=== PATIENT | female | born 1945 | race Caucasian/White ===

== ENCOUNTER → 2016-11-03 | Day surgery (SDC) | payer OTHER ==
[2016-10-24 14:37] VITALS: BMI 38.0
[~2016-11-03] VITALS: Ht 152.4 cm; Wt 88.2 kg
[~2016-11-03] MED LIST: ASPCH81X PO; CALC500C70 PO; CANA1TAB PO; COEN100C7 PO; DIPH25CA5 PO; LIDOCAINE HCL 2% 2 ML VIAL (20MG/ML) ONE; MAGN400T6 PO; METF-841 PO; MIDAZOLAM HCL 1 MG/ML 2ML VIAL ONE; OMEG10007 PO; OMEP40CA41 PO; ONDANSETRON INJ 2 MG/ML 2 ML VIAL ONE; PROPOFOL IV EMULSION 10 MG/ML 20 ML VIAL IV ONE; PRVC10 PO; SODIUM CHLORIDE 0.9% 500ML 500 ML IV ONE
[2016-11-03 10:41] VITALS: Ht 152.4 cm; Wt 88.2 kg
--- NOTE | 2016-11-03 11:15 | Endo History and Physical ---
History & Physical Date of Service: Nov 03, 2016. Chief Complaint: ATYPICAL CHEST PAIN, GERD WITHOUT ESOPHAGITIS Referring Physician: DR MARGO DANIEL History of Present Illness 71 yo CF who presents for EGD secondary to atypical chest pain and GERD. Past Surgical History Hx Cardiac Surgery: No Hx Internal Defibrillator: No Hx Pacemaker: No Hx Abdominal Surgery: Yes (TUBAL LIGATION) Hx of Implantable Prosthesis: No Hx Post-Op Nausea and Vomiting: No Hx Cancer Surgery: No Hx Thoracic Surgery: No Hx Orthopedic: No Hx Urinary Tract Surgery: No Family History IBD Social History Smoking Status: Never Smoker Hx Substance Use: No Hx Alcohol Use: No Allergies Coded Allergies: Adhesives (Verified Allergy, Unknown, RASH, 10/24/16) NO KNOWN DRUG ALLERGIES (Verified Allergy, Unknown, ., 10/24/16) Current Medications Reported Home Medications Medications Dose Route/Sig Max Daily Dose Days Date Category Coq10 (Coenzyme Q10 (Ubidecarenone)) 100 Mg Cap 1 Cap PO QPM 10/24/16 Reported [place]-3 (Fish Oil) 1 Ea Cap 1 Cap PO DAILY AFTERNOON 10/24/16 Reported Mag-Ox (Magnesium Oxide) 400 Mg Tab 400 Mg PO DAILY AFTERNOON 10/24/16 Reported Os-Daniel 500 Plus D (Calcium/Vitamin D) Tab 1 Tab PO DAILY AFTERNOON 10/24/16 Reported Benadryl (Diphenhydramine Hcl) 25 Mg Cap 25 Mg PO HS PRN 10/24/16 Reported Aspirin Chewable (Aspirin) 81 Mg Chew 81 Mg PO QPM 10/24/16 Reported Pravastatin Sodium (Pravastatin Sod) 10 Mg Tab 1 Tab PO QPM 10/24/16 Reported Prilosec (Omeprazole) 40 Mg Cap 40 Mg PO QAM 10/24/16 Reported Metformin HCl ER (Metformin HCl) 1,000 Mg Tab 1 Tab PO BID 10/24/16 Reported Invokana (Canagliflozin) 100 Mg Tab 1 Tab PO QAM 10/24/16 Reported Vital Signs Weight (Kilograms): 88.18 Height (Feet): 5 Height (Inches): 0 Date Time Temp Pulse Resp B/P Pulse Ox O2 Delivery O2 Flow Rate FiO2 11/03/16 10:44 36.9 77 20 164/82 97 Room Air Physical Exam General Appearance: WD/WN, no apparent distress Respiratory/Chest: Auscultation: breath sounds normal Cardiovascular: Heart Auscultation: RRR Abdomen: Bowel Sounds: normal Inspection & Palpation: soft, non-distended, no tenderness, guarding & rebound Assessment and Plan Assessment: 71 yo CF who presents for EGD secondary to atypical chest pain and GERD. Plan: Proceed with EGD.
[2016-11-03 12:25] VITALS: BP 135/70; PULSE 66; O2SAT 99
--- NOTE | 2016-11-03 12:37 | Discharge Instructions ---
Endoscopy Patient Instructions Date / Procedure(s) Performed Nov 03, 2016. EGD Allergy Information Coded Allergies: Adhesives (Verified Allergy, Unknown, RASH, 10/24/16) NO KNOWN DRUG ALLERGIES (Verified Allergy, Unknown, ., 10/24/16) Discharge Date / Findings Nov 03, 2016. Gastritis s/p biopsies Medication Instructions Stopped Medication(s): METFORMIN LAST DOSE 10/31/16 Provider Instructions Activity Restrictions - No exercising or heavy lifting for 24 hours. - Do not drink alcohol the day of the procedure. - Do not drive a car or operate machinery until the day after the procedure. - Do not make any important decisions or sign important papers in 24 hours after the procedure. Following Day: - Return to full activity which may include returning to work/school. Diet Start your diet with liquids and light foods (jello, soup, juice, toast). Then eat your usual diet if not nauseated. Treatment For Common After Affects For mild abdominal pain, bloating, or excessive gas: - Rest - Eat lightly - Lie on right side Follow-Up Information Follow-up with DR MARGO DANIEL as scheduled Anesthesia Information What You Should Know You have had a procedure that required some medicine to reduce anxiety and discomfort. This treatment is called moderate sedation. After receiving the treatment, you may be sleepy, but you will be able to breathe on your own. The effects of the treatment may last for several hours. Follow these instructions along with Activity/Diet recommendations noted above: * Do NOT do anything where dizziness or clumsiness would be dangerous. * Rest quietly at home today, then you can be up and about tomorrow. * Have a responsible person stay with you the rest of today. * You may have had an I.V. today. If so, you may take the dressing off later today. Recommendations Call your doctor if: * Trouble breathing * Continuous vomiting for more than 24 hours * Temperature above 101 degrees * Severe abdominal pain or bloating * Pain not relieved by pain medicine ordered * There is increased drainage or redness from any incision * A large amount of rectal bleeding greater than 2-3 tablespoons. (If you had a polyp/s removed or have hemorrhoids, a small amount of blood - from the rectum is to be expected.) * You have any unanswered questions or concerns. IN THE EVENT OF A SERIOUS EMERGENCY, GO TO THE NEAREST EMERGENCY ROOM Your discharge instructions were prepared by provider Aries Blanchard. Patient Instructions Signature Page Mechelle Lux Patient (or Guardian) Signature/Date: I have read and understand the instructions given to me by my caregivers. Caregiver/RN/Doctor Signature/Date: The above-named patient and/or guardian has received patient instructions on this date. + Original Patient Signature Page (only) stays with chart. Please make copy for patient.
--- NOTE | 2016-11-03 13:02 | GI REPORT ---
Procedure Date: 11/03/2016 11:28 AM Procedure: Upper GI endoscopy Indications: Follow-up of gastro-esophageal reflux disease Medicines: Monitored Anesthesia Care Complications: No immediate complications. Estimated Blood Loss: Estimated blood loss: none. Procedure: Pre-Anesthesia Assessment: - Prior to the procedure, a History and Physical was performed, and patient medications and allergies were reviewed. The patient's tolerance of previous anesthesia was also reviewed. The risks and benefits of the procedure and the sedation options and risks were discussed with the patient. All questions were answered, and informed consent was obtained. Prior Anticoagulants: The patient has taken no previous anticoagulant or antiplatelet agents. ASA Grade Assessment: II - A patient with mild systemic disease. After reviewing the risks and benefits, the patient was deemed in satisfactory condition to undergo the procedure. After obtaining informed consent, the endoscope was passed under direct vision. Throughout the procedure, the patient's blood pressure, pulse, and oxygen saturations were monitored continuously. The scope was introduced through the mouth, and advanced to the second part of duodenum. The upper GI endoscopy was accomplished without difficulty. The patient tolerated the procedure well. Findings: The examined esophagus was normal. Localized mild inflammation characterized by erythema was found in the gastric antrum. Biopsies were taken with a cold forceps for histology. The examined duodenum was normal. Impression: - Normal esophagus. - Gastritis. Biopsied. - Normal examined duodenum. Recommendation: - Resume previous diet. - Continue present medications. - Await pathology results. - Return to GI office as previously scheduled. Aries Blanchard DO 11/03/2016 1:01:37 PM This report has been signed electronically. Note Initiated On: 11/03/2016 11:28 AM I attest to the content of the Intraoperative Record and orders documented therein, exceptions below
--- NOTE | 2016-11-03 13:14 | Anesthesiology Progress Note ---
Anesthesia Post Op Note Date & Time Nov 03, 2016 at 13:13 Vital Signs Pain Intensity: 0 Vital Signs Past 12 Hours Date Time Temp Pulse Resp B/P Pulse Ox O2 Delivery O2 Flow Rate FiO2 11/03/16 12:25 66 20 135/70 99 Room Air 11/03/16 12:13 72 20 132/58 99 Room Air 11/03/16 12:03 75 20 123/61 97 Room Air 11/03/16 10:44 36.9 77 20 164/82 97 Room Air Notes Mental Status: alert / awake / arousable, participated in evaluation Pt Amnestic to Procedure: Yes Nausea / Vomiting: adequately controlled Pain: adequately controlled Airway Patency, RR, SpO2: stable & adequate BP & HR: stable & adequate Hydration State: stable & adequate Anesthetic Complications: no major complications apparent
== END | disposition home or self-care (01) ==
LOC: C.GI 10:14
PROVIDERS: ATTEND Internal Medicine
DX: K21.9 Gastro-esophageal reflux disease without esophagitis (principal); K29.70 Gastritis, unspecified, without bleeding; Z79.82 Long term (current) use of aspirin; Z79.899 Other long term (current) drug therapy

== ENCOUNTER → 2016-12-26 | Day surgery (SDC) | payer OTHER ==
[2016-12-22 08:10] VITALS: BMI 38.0
[~2016-12-26] VITALS: Ht 152.4 cm; Wt 88.2 kg
[~2016-12-26] MED LIST changes: -MIDAZOLAM HCL 1 MG/ML 2ML VIAL ONE; -ONDANSETRON INJ 2 MG/ML 2 ML VIAL ONE; -SODIUM CHLORIDE 0.9% 500ML 500 ML IV ONE
[2016-12-26 11:39] VITALS: Ht 152.4 cm; Wt 88.2 kg
--- NOTE | 2016-12-26 12:05 | Endo History and Physical ---
History & Physical Date of Service: Dec 26, 2016. Chief Complaint: SCREENING FOR COLONSCOPY Referring Physician: DR MARGO DANIEL History of Present Illness 71 yo CF who presents for screening colonoscopy. Past Surgical History Hx Cardiac Surgery: No Hx Internal Defibrillator: No Hx Pacemaker: No Hx Abdominal Surgery: Yes (TUBAL LIGATION) Hx of Implantable Prosthesis: No Hx Post-Op Nausea and Vomiting: No Hx Cancer Surgery: No Hx Thoracic Surgery: No Hx Orthopedic: No Hx Urinary Tract Surgery: No Family History None Social History Smoking Status: Never Smoker Hx Substance Use: No Hx Alcohol Use: No Allergies Coded Allergies: Adhesives (Verified Allergy, Unknown, RASH, 12/22/16) NO KNOWN DRUG ALLERGIES (Verified Allergy, Unknown, ., 12/22/16) Current Medications Reported Home Medications Medications Dose Route/Sig Max Daily Dose Days Date Category Coq10 (Coenzyme Q10 (Ubidecarenone)) 100 Mg Cap 1 Cap PO QPM 10/24/16 Reported [place]-3 (Fish Oil) 1 Ea Cap 1 Cap PO DAILY AFTERNOON 10/24/16 Reported Mag-Ox (Magnesium Oxide) 400 Mg Tab 400 Mg PO DAILY AFTERNOON 10/24/16 Reported Os-Daniel 500 Plus D (Calcium/Vitamin D) Tab 1 Tab PO DAILY AFTERNOON 10/24/16 Reported Benadryl (Diphenhydramine Hcl) 25 Mg Cap 25 Mg PO HS PRN 10/24/16 Reported Aspirin Chewable (Aspirin) 81 Mg Chew 81 Mg PO QPM 10/24/16 Reported Pravastatin Sodium (Pravastatin Sod) 10 Mg Tab 1 Tab PO QPM 10/24/16 Reported Prilosec (Omeprazole) 40 Mg Cap 40 Mg PO QAM 10/24/16 Reported Metformin HCl ER (Metformin HCl) 1,000 Mg Tab 1 Tab PO BID 10/24/16 Reported Invokana (Canagliflozin) 100 Mg Tab 1 Tab PO QAM 10/24/16 Reported Vital Signs Weight (Kilograms): 88.18 Height (Feet): 5 Height (Inches): 0 Date Time Temp Pulse Resp B/P (MAP) Pulse Ox O2 Delivery O2 Flow Rate FiO2 12/26/16 11:38 36.7 88 18 153/87 (109) 97 Room Air Physical Exam General Appearance: WD/WN, no apparent distress Respiratory/Chest: Auscultation: breath sounds normal Cardiovascular: Heart Auscultation: RRR Abdomen: Bowel Sounds: normal Inspection & Palpation: soft, non-distended, no tenderness, guarding & rebound Assessment and Plan Assessment: 71 yo CF who presents for screening colonoscopy. Plan: Proceed with colonoscopy.
--- NOTE | 2016-12-26 12:56 | Discharge Instructions ---
Endoscopy Patient Instructions Date / Procedure(s) Performed Dec 26, 2016. Colonoscopy Allergy Information Coded Allergies: Adhesives (Verified Allergy, Unknown, RASH, 12/22/16) NO KNOWN DRUG ALLERGIES (Verified Allergy, Unknown, ., 12/22/16) Discharge Date / Findings Dec 26, 2016. Diverticulosis Internal hemorrhoids Medication Instructions Stopped Medication(s): ASPIRIN LAST DOSE 12/24/16 METFORMIN LAST DOSE 12/25/16 Restart Stopped Medication(s): OK to resume all medications today as prescribed Medications Dose Route/Sig Max Daily Dose Days Date Category Coq10 (Coenzyme Q10 (Ubidecarenone)) 100 Mg Cap 1 Cap PO QPM 10/24/16 Reported [place]-3 (Fish Oil) 1 Ea Cap 1 Cap PO DAILY AFTERNOON 10/24/16 Reported Mag-Ox (Magnesium Oxide) 400 Mg Tab 400 Mg PO DAILY AFTERNOON 10/24/16 Reported Os-Daniel 500 Plus D (Calcium/Vitamin D) Tab 1 Tab PO DAILY AFTERNOON 10/24/16 Reported Benadryl (Diphenhydramine Hcl) 25 Mg Cap 25 Mg PO HS PRN 10/24/16 Reported Aspirin Chewable (Aspirin) 81 Mg Chew 81 Mg PO QPM 10/24/16 Reported Pravastatin Sodium (Pravastatin Sod) 10 Mg Tab 1 Tab PO QPM 10/24/16 Reported Prilosec (Omeprazole) 40 Mg Cap 40 Mg PO QAM 10/24/16 Reported Metformin HCl ER (Metformin HCl) 1,000 Mg Tab 1 Tab PO BID 10/24/16 Reported Invokana (Canagliflozin) 100 Mg Tab 1 Tab PO QAM 10/24/16 Reported Provider Instructions Activity Restrictions - No exercising or heavy lifting for 24 hours. - Do not drink alcohol the day of the procedure. - Do not drive a car or operate machinery until the day after the procedure. - Do not make any important decisions or sign important papers in 24 hours after the procedure. Following Day: - Return to full activity which may include returning to work/school. Diet Start your diet with liquids and light foods (jello, soup, juice, toast). Then eat your usual diet if not nauseated. Treatment For Common After Affects For mild abdominal pain, bloating, or excessive gas: - Rest - Eat lightly - Lie on right side Follow-Up Information Follow-up with DR MARGO DANIEL as scheduled Anesthesia Information What You Should Know You have had a procedure that required some medicine to reduce anxiety and discomfort. This treatment is called moderate sedation. After receiving the treatment, you may be sleepy, but you will be able to breathe on your own. The effects of the treatment may last for several hours. Follow these instructions along with Activity/Diet recommendations noted above: * Do NOT do anything where dizziness or clumsiness would be dangerous. * Rest quietly at home today, then you can be up and about tomorrow. * Have a responsible person stay with you the rest of today. * You may have had an I.V. today. If so, you may take the dressing off later today. Recommendations Call your doctor if: * Trouble breathing * Continuous vomiting for more than 24 hours * Temperature above 101 degrees * Severe abdominal pain or bloating * Pain not relieved by pain medicine ordered * There is increased drainage or redness from any incision * A large amount of rectal bleeding greater than 2-3 tablespoons. (If you had a polyp/s removed or have hemorrhoids, a small amount of blood - from the rectum is to be expected.) * You have any unanswered questions or concerns. IN THE EVENT OF A SERIOUS EMERGENCY, GO TO THE NEAREST EMERGENCY ROOM Your discharge instructions were prepared by provider Aries Blanchard. Patient Instructions Signature Page Mechelle Lux Patient (or Guardian) Signature/Date: I have read and understand the instructions given to me by my caregivers. Caregiver/RN/Doctor Signature/Date: The above-named patient and/or guardian has received patient instructions on this date. + Original Patient Signature Page (only) stays with chart. Please make copy for patient.
[2016-12-26 13:27] VITALS: BP 140/86; PULSE 81; O2SAT 99
--- NOTE | 2016-12-26 13:33 | Anesthesiology Progress Note ---
Anesthesia Post Op Note Date & Time Dec 26, 2016 at 13:32 Vital Signs Pain Intensity: 0 Vital Signs Past 12 Hours Date Time Temp Pulse Resp B/P (MAP) Pulse Ox O2 Delivery O2 Flow Rate FiO2 12/26/16 13:27 81 20 140/86 (104) 99 Room Air 12/26/16 13:12 83 20 138/83 (101) 98 Room Air 12/26/16 12:57 81 20 129/72 (91) 97 Room Air 12/26/16 11:38 36.7 88 18 153/87 (109) 97 Room Air Notes Mental Status: alert / awake / arousable, participated in evaluation Pt Amnestic to Procedure: Yes Nausea / Vomiting: adequately controlled Pain: adequately controlled Airway Patency, RR, SpO2: stable & adequate BP & HR: stable & adequate Hydration State: stable & adequate Anesthetic Complications: no major complications apparent
--- NOTE | 2016-12-26 14:00 | GI REPORT ---
Procedure Date: 12/26/2016 12:36 PM Procedure: Colonoscopy Indications: Screening for colorectal malignant neoplasm Medicines: Monitored Anesthesia Care Complications: No immediate complications. Estimated Blood Loss: Estimated blood loss: none. Procedure: Pre-Anesthesia Assessment: - Prior to the procedure, a History and Physical was performed, and patient medications and allergies were reviewed. The patient's tolerance of previous anesthesia was also reviewed. The risks and benefits of the procedure and the sedation options and risks were discussed with the patient. All questions were answered, and informed consent was obtained. Prior Anticoagulants: The patient has taken no previous anticoagulant or antiplatelet agents. ASA Grade Assessment: II - A patient with mild systemic disease. After reviewing the risks and benefits, the patient was deemed in satisfactory condition to undergo the procedure. After I obtained informed consent, the scope was passed under direct vision. Throughout the procedure, the patient's blood pressure, pulse, and oxygen saturations were monitored continuously. The scope was introduced through the anus and advanced to the terminal ileum. The colonoscopy was performed without difficulty. The patient tolerated the procedure well. The quality of the bowel preparation was good. The terminal ileum, ileocecal valve, appendiceal orifice, and rectum were photographed. Findings: Multiple small-mouthed diverticula were found in the sigmoid colon. Non-bleeding internal hemorrhoids were found during retroflexion. The hemorrhoids were small. Impression: - Diverticulosis in the sigmoid colon. - Non-bleeding internal hemorrhoids. - No specimens collected. Recommendation: - Resume previous diet. - Continue present medications. - No repeat colonoscopy due to age and the absence of advanced adenomas. - Return to primary care physician as previously scheduled. Aries Blanchard DO 12/26/2016 1:59:57 PM This report has been signed electronically. Note Initiated On: 12/26/2016 12:36 PM I attest to the content of the Intraoperative Record and orders documented therein, exceptions below
== END | disposition home or self-care (01) ==
LOC: C.GI 11:02
PROVIDERS: ATTEND Internal Medicine
DX: Z12.11 Encounter for screening for malignant neoplasm of colon (principal); K57.90 Diverticulosis of intestine, part unspecified, without perforation or abscess without bleeding; K64.8 Other hemorrhoids; Z98.51 Tubal ligation status; E11.9 Type 2 diabetes mellitus without complications; K21.9 Gastro-esophageal reflux disease without esophagitis; G47.33 Obstructive sleep apnea (adult) (pediatric)

== ENCOUNTER → 2017-06-10 | Outpatient (CLI) | payer OTHER ==
[~2017-06-10] MED LIST changes: -LIDOCAINE HCL 2% 2 ML VIAL (20MG/ML) ONE; -PROPOFOL IV EMULSION 10 MG/ML 20 ML VIAL IV ONE
[2017-06-10 12:20] LABS: ESTIMATED AVERAGE GLUCOSE 146 mg/dl; HA1C FLAG Normal (Normal)
[2017-06-10 12:22] LABS: BLOOD UREA NITROGEN 26 mg/dl (7-18); BUN/CREATININE RATIO 25.2 (10-20); CALCIUM 9.4 mg/dl (8.5-10.1); CARBON DIOXIDE 26 mmol/L (21-32); CHLORIDE 102 mmol/L (98-107); CHOLESTEROL 211 mg/dl (0-200); CREATININE 1.04 mg/dl (0.60-1.20); GLUCOSE 126 mg/dl (70-99); SODIUM 137 mmol/L (136-145); TRIGLYCERIDES 171 mg/dl (0-150); VERY LOW DENSITY LIPOPROT CALC 34 mg/dl
[2017-06-10 12:25] LABS: CHOLESTEROL/HDL RATIO 3.9; HDL CHOLESTEROL 54 mg/dl; LDL CHOLESTEROL CALCULATED 123 mg/dl
== END | disposition home or self-care (01) ==
LOC: C.LABBFT 08:08
PROVIDERS: ATTEND Family Medicine
DX: E78.2 Mixed hyperlipidemia (principal); I10 Essential (primary) hypertension; E11.9 Type 2 diabetes mellitus without complications

== ENCOUNTER → 2017-09-14 | Outpatient (CLI) | payer OTHER ==
[2017-09-14 12:50] LABS: HEMOGLOBIN A1C 6.7 % (4.5-5.6)
[2017-09-14 12:51] LABS: BLOOD UREA NITROGEN 19 mg/dl (7-18); CALCIUM 9.3 mg/dl (8.5-10.1); CARBON DIOXIDE 30 mmol/L (21-32); GLUCOSE 124 mg/dl (70-99); POTASSIUM 4.3 mmol/L (3.5-5.1); SODIUM 138 mmol/L (136-145)
== END | disposition home or self-care (01) ==
LOC: C.LABBFT 10:17
PROVIDERS: ATTEND Family Medicine
DX: E11.9 Type 2 diabetes mellitus without complications (principal)